=== PATIENT | male | born 1960 | race Caucasian/White ===

== ENCOUNTER 2018-04-20 00:31 | Emergency (ER) | payer OTHER ==
[~2018-04-20] VITALS: Ht 182.9 cm; Wt 127.0 kg
[2018-04-20 02:03] LABS: Basophils # (auto) 0 uL; Basophils % (auto) 0.7 % (0.0-2.0); Eosinophils # (auto) 0.1 uL; Hemoglobin 15.1 g/dL (13.5-17.5); Lymphocytes # (auto) 1.8 uL; Neutrophils # (auto) 3.3 uL
[2018-04-20 02:05] LABS: Eosinophils % (auto) 1.6 % (0.0-7.0); Hematocrit 45.9 % (41.0-53.0); Lymphocytes % (auto) 31.3 % (10.0-50.0); Mean Corpuscular Hemoglobin 33.4 pg (28.0-32.0); Mean Corpuscular Volume 101.3 fL (80.0-100.0); Monocytes # (auto) 0.6 uL; Monocytes % (auto) 9.6 % (0.0-12.0); Neutrophils % (auto) 56.8 % (37.0-80.0); Nucleated Red Blood Cells % 0.1 %; Platelet Count (auto) 187 10^3/uL (140-450); Red Blood Cells 4.54 10^6/uL (4.5-5.90); Red Cell Distribution Width 15.2 % (11.8-14.3); White Blood Cell 5.8 10^3/uL (4.4-10.8)
[2018-04-20] MEDS ORDERED: MVI in SODIUM CHLORIDE 0.9% 1,010 ML IV ONE (02:12)
[2018-04-20] MEDS ORDERED: MVI in SODIUM CHLORIDE 0.9% 1,010 ML ONE (02:14)
[2018-04-20] MEDS ORDERED: THIAMINE 100mg/ml INJ (200mg/2ml VIAL) IV ONE (02:15)
[2018-04-20] MEDS ORDERED: MAGNESIUM SULFATE 1GM/100ML 100 ML IV ONE (02:17)
[2018-04-20 02:21] LABS: Alanine Aminotransferase 35 U/L (16-61); Albumin 4.2 g/dL (3.4-5.0); Anion Gap 12 (5-15); Aspartate Aminotransferase 29 U/L (15-37); Blood Urea Nitrogen 25 mg/dL (7-18); Calcium 8.6 mg/dL (8.5-10.1); Carbon Dioxide 20 mmol/L (21-32); Chloride 107 mmol/L (98-107); Glucose 95 mg/dL (74-106); Magnesium 2.3 mg/dL (1.6-2.6); Potassium 3.8 mmol/L (3.5-5.1); Sodium 139 mmol/L (136-145)
[2018-04-20] MEDS: MAGNESIUM SULFATE 1GM/100ML 100 ML IV SCH ×2 (02:27→03:53)
[2018-04-20 02:29] LABS: Alkaline Phosphatase 67 U/L (45-117); BUN/Creatinine Ratio 18.5; Bilirubin, Total 0.2 mg/dL (0.2-1.0); GFR African American 70 mL/min; GFR Non-African American 58 mL/min
[2018-04-20 02:49] LABS: INR 0.92 (0.9-1.15); Prothrombin Time 9.9 sec (9.27-12.13)
[2018-04-20] MEDS ORDERED: LORazepam 2MG/ML-1ML VIAL ONE (10:12)
[2018-04-20] MEDS ORDERED: LORazepam 2MG/ML-1ML VIAL IV ONE ×2 (10:30→10:45)
[2018-04-20 13:47] VITALS: BP 134/65
== END 2018-04-20 17:27 | disposition home or self-care (01) ==
LOC: EDBD 00:31 → ER 00:38
DX: F10.129 Alcohol abuse with intoxication, unspecified (principal); G92 Toxic encephalopathy; E86.0 Dehydration; R41.82 Altered mental status, unspecified; R79.1 Abnormal coagulation profile; I48.91 Unspecified atrial fibrillation; I10 Essential (primary) hypertension; Y90.8 Blood alcohol level of 240 mg/100 ml or more
CPT/HCPCS: 36415; 70450; 71045; 80053; 80320; 82962; 83735; 84484; 85025; 85379; 85610; 85730; 93005; 96361; 96374; 96375; 99284; J2060; J3411; J3475

== ENCOUNTER 2018-08-07 18:56 | Emergency (ER) | payer OTHER ==
[~2018-08-07] VITALS: Ht 188 cm; Wt 113.9 kg
[2018-08-07] MEDS ORDERED: SODIUM CHLORIDE 0.9% 1,000 ML IV ONE (19:30)
[2018-08-07 19:37] LABS: Basophils # (auto) 0 uL; Basophils % (auto) 0.9 % (0.0-2.0); Eosinophils # (auto) 0.2 uL; Eosinophils % (auto) 3.1 % (0.0-7.0); Hematocrit 42.1 % (41.0-53.0); Hemoglobin 14.2 g/dL (13.5-17.5); Lymphocytes # (auto) 1.3 uL; Lymphocytes % (auto) 24.1 % (10.0-50.0); Mean Corpuscular Hemoglobin 33.8 pg (28.0-32.0); Mean Corpuscular Hgb Conc. 33.9 g/dL (32.0-36.0); Mean Corpuscular Volume 99.9 fL (80.0-100.0); Monocytes # (auto) 0.5 uL; Monocytes % (auto) 8.2 % (0.0-12.0); Neutrophils # (auto) 3.5 uL; Neutrophils % (auto) 63.7 % (37.0-80.0); Platelet Count (auto) 185 10^3/uL (140-450); Red Blood Cells 4.21 10^6/uL (4.5-5.90); Red Cell Distribution Width 14.6 % (11.8-14.3); White Blood Cell 5.6 10^3/uL (4.4-10.8)
[2018-08-07 19:42] LABS: Potassium 4.1 mmol/L (3.5-5.1)
[2018-08-07 19:44] LABS: Albumin 4.1 g/dL (3.4-5.0); Calcium 9.1 mg/dL (8.5-10.1)
[2018-08-07 19:48] LABS: INR 0.89 (0.9-1.15); Prothrombin Time 9.6 sec (9.27-12.13)
[2018-08-07 19:50] LABS: BUN/Creatinine Ratio 22.4; Bilirubin, Total 0.2 mg/dL (0.2-1.0)
[2018-08-07] MEDS ORDERED: LIDOCAINE W/ EPINEPHRINE 2% INJ 20ML VIAL IJ ONE (20:00)
[2018-08-07 21:06] LABS: Urine WBC None Seen /hpf (0 - 3)
[2018-08-07] MEDS ORDERED: MVI in SODIUM CHLORIDE 0.9% 1,010 ML ONE (21:09)
[2018-08-07 21:35] LABS: Amphetamine Screen, Urine NEGATIVE (NEGATIVE); Barbiturate Scree,Urine NEGATIVE (NEGATIVE); Benzodiazephine Screen, Urine NEGATIVE (NEGATIVE); Cannabinoid Screen, Urine NEGATIVE (NEGATIVE); Cocaine Screen, Urine NEGATIVE (NEGATIVE); Opiate Scree,Urine NEGATIVE (NEGATIVE); Phencyclidine Screen, Urine NEGATIVE (NEGATIVE)
[2018-08-07 21:36] LABS: Urine Bacteria NONE SEEN /hpf (None Seen); Urine Blood Negative /uL (Negative); Urine Specific Gravity 1.012 (1.001-1.035)
[2018-08-07] MEDS ORDERED: MULTIPLE VITAMIN 10 ML, MAGNESIUM SULF SDV 50% 8 MEQ, THIAMINE INJ 100 MG in SODIUM CHL... IV SCH (22:00)
[2018-08-07 22:06] VITALS: BP 128/71
[2018-08-07] MEDS ORDERED: NEOMYCIN-BACITRACIN-POLYM UNITDOSE PKG TOP OINT TOP ONE (22:30)
== END 2018-08-07 22:58 | disposition home or self-care (01) ==
LOC: ER 19:02
DX: S01.01XA Laceration without foreign body of scalp, initial encounter (principal); F10.229 Alcohol dependence with intoxication, unspecified; I48.91 Unspecified atrial fibrillation; I10 Essential (primary) hypertension; W18.39XA Other fall on same level, initial encounter; Y93.89 Activity, other specified; Y99.8 Other external cause status; Y92.89 Other specified places as the place of occurrence of the external cause
CPT/HCPCS: 12002; 36415; 70450; 72125; 80053; 80307; 80320; 81001; 85025; 85610; 85730; 93005; 96365; 99284; J3411; J3475; J7030

== ENCOUNTER 2018-08-16 15:25 | Emergency (ER) | payer SELFPAY ==
[~2018-08-16] VITALS: Ht 188 cm; Wt 111.6 kg
[2018-08-16 20:04] VITALS: BP 155/96
== END 2018-08-16 20:19 | disposition home or self-care (01) ==
LOC: ER 15:29
DX: S01.01XD Laceration without foreign body of scalp, subsequent encounter (principal); I10 Essential (primary) hypertension; X58.XXXD Exposure to other specified factors, subsequent encounter

== ENCOUNTER 2019-02-02 05:59 | Inpatient (IN) | payer OTHER ==
[~2019-02-02] VITALS: Ht 188 cm; Wt 104.3 kg
[2019-02-02 06:48] LABS: Basophils # (auto) 0 uL; Basophils % (auto) 0.4 % (0.0-2.0); Eosinophils # (auto) 0 uL; Eosinophils % (auto) 0.7 % (0.0-7.0); Hematocrit 40.5 % (41.0-53.0); Hemoglobin 13.9 g/dL (13.5-17.5); Lymphocytes # (auto) 0.5 uL; Lymphocytes % (auto) 8.2 % (10.0-50.0); Mean Corpuscular Hemoglobin 34.7 pg (28.0-32.0); Mean Corpuscular Hgb Conc. 34.3 g/dL (32.0-36.0); Mean Corpuscular Volume 100.9 fL (80.0-100.0); Monocytes # (auto) 0.5 uL; Monocytes % (auto) 7.9 % (0.0-12.0); Neutrophils # (auto) 5.1 uL; Neutrophils % (auto) 82.8 % (37.0-80.0); Platelet Count (auto) 150 10^3/uL (140-450); Red Blood Cells 4.02 10^6/uL (4.5-5.90); Red Cell Distribution Width 14.3 % (11.8-14.3); White Blood Cell 6.2 10^3/uL (4.4-10.8)
[2019-02-02] MEDS ORDERED: MORPHINE SULFATE 4 MG/ML SYR/VIAL IV ONE ×2 (07:00→09:30)
[2019-02-02] MEDS ORDERED: ONDANSETRON HCL 4 MG/2 ML VIAL IV ONE ×2 (07:00→09:30)
[2019-02-02 07:03] LABS: INR < 0.93 (0.9-1.15); Partial Thromboplastin Time 28.1 sec (23.64-32.05)
[2019-02-02 07:06] LABS: Alanine Aminotransferase 32 U/L (16-61); Albumin 3.8 g/dL (3.4-5.0); Anion Gap 11 (5-15); Aspartate Aminotransferase 27 U/L (15-37); BUN/Creatinine Ratio 25.7; Blood Urea Nitrogen 28 mg/dL (7-18); Calcium 8.4 mg/dL (8.5-10.1); Carbon Dioxide 23 mmol/L (21-32); Chloride 106 mmol/L (98-107); GFR African American 89 mL/min; GFR Non-African American 74 mL/min; Glucose 85 mg/dL (74-106); Potassium 4.2 mmol/L (3.5-5.1); Sodium 140 mmol/L (136-145)
[2019-02-02 07:11] LABS: Alkaline Phosphatase 50 U/L (45-117); Bilirubin, Total 0.4 mg/dL (0.2-1.0); Total Protein 7.5 g/dL (6.4-8.2)
[2019-02-02] MEDS ORDERED: LISI-646 PO (07:59)
[2019-02-02] MEDS ORDERED: CLON1TAB10 PO (07:59)
[2019-02-02] MEDS ORDERED: PRIM50TA29 PO (07:59)
[2019-02-02] MEDS ORDERED: HYDR50TA15 PO (07:59)
[2019-02-02] MEDS ORDERED: LEVO25TA6 PO (07:59)
[2019-02-02] MEDS ORDERED: TRAZ-181 PO (07:59)
[2019-02-02] MEDS ORDERED: ATEN50TA PO (07:59)
[2019-02-02] MEDS ORDERED: LAMO200T34 PO (07:59)
[2019-02-02] MEDS ORDERED: IOHEXOL 350 MG/ML 100ML IJ ONE (08:12)
[2019-02-02] MEDS ORDERED: SODIUM CHLORIDE 0.9% 1,000 ML IV ONE (08:30)
[2019-02-02] MEDS ORDERED: MORPHINE SULF INJ 2 MG/ML SYRINGE 1ML IV PRN (10:15)
[2019-02-02] MEDS ORDERED: TEMAZEPAM 15 MG CAP PO PRN (10:15)
[2019-02-02] MEDS ORDERED: ACETAMINOPHEN 500 MG TAB PO PRN (10:15)
[2019-02-02] MEDS ORDERED: LACTULOSE 20Gm/30ML SOLN PO PRN ×2 (10:15)
[2019-02-02] MEDS ORDERED: NITROGLYCERIN 0.4 MG SL TAB SL PRN (10:15)
[2019-02-02] MEDS ORDERED: PROMETHAZINE HCL 25 MG/ML 1ML IV PRN (10:15)
--- NOTE | 2019-02-02 10:38 | NUR ---
Received report from Juliann FINLEY RN. Awaiting patient to be brought up to room
--- NOTE | 2019-02-02 10:54 | NUR ---
Telemetry admit from [facility]DEL[facility] admitted to Telemetry unit after SBAR received. Patient oriented to AYDE NINO, MONTSE HESTER primary RN, unit, room, bed, and unit policies regarding patient care and visiting hours. Patient now on continuous telemetry monitoring, tele box # 69 and telemetry reading on arrival to unit is SR 66. Patient is room air, respirations unlabored, states pain 2/10 and AOx4. Plan of care reviewed with patient he verbalized understanding. Bed positioned low and locked, call light within reach will continue to monitor Q1hr or PRN as needed. Signed: 02/02/19 at 1319 by AYDE NINO SN <Co-Signature Required> Co-Signed: 02/02/19 at 1319 by MONTSE HESTER RN RN
[2019-02-02 12:30] VITALS: BP 129/66
--- NOTE | 2019-02-02 12:39 | NUR ---
Dr. Hanley at bedside New orders received for Cardiolite stress test. Patient to be NPO until stress test, than resume cardiac diet. Will implement new orders. Will continue to monitor Q1 hour and PRN.
--- NOTE | 2019-02-02 15:06 | NUR ---
Social Service consult regarding Advance Directives. Provided pt with information on Advance Directives and Durable Power of Public Address System Mechanic Form. Pt verbalized understanding and accepted information. Will contact Director Of Instrumental Music for any further concerns or issues.
[2019-02-02] MEDS ORDERED: ASPirin 325 MG TAB PO SCH (15:30)
[2019-02-02] MEDS ORDERED: PANTOPRAZOLE 40 MG TAB PO ONE (15:45)
--- NOTE | 2019-02-02 16:40 | NUR ---
technical assistance consultant at bedside
[2019-02-02] MEDS: traMADol HCL 50 MG TAB PO PRN ×2 (16:58→21:06)
[2019-02-02 17:00] VITALS: BP 113/70
--- NOTE | 2019-02-02 18:08 | NUR ---
Called pharmacy for patients 1800 medications. States they will send up medication.
--- NOTE | 2019-02-02 19:28 | NUR ---
Closing Note Report given to shift supervisor film processing RN. No signs or symptoms of distress noted at this time.
[2019-02-02 22:00] VITALS: BP 150/79
[2019-02-02] MEDS ORDERED: ATORVASTATIN 20 MG TAB PO SCH (22:00)
[2019-02-02] MEDS ORDERED: traZODone HCL 50 MG TAB PO SCH (22:00)
[2019-02-02] MEDS: ASPirin 325 MG TAB PO SCH (22:09)
[2019-02-02] MEDS: hydrALAZINE HCL 25 MG TAB PO SCH (22:10)
[2019-02-02] MEDS: COLCHICINE 0.6 MG CAP PO SCH (22:11)
[2019-02-02] MEDS: clonazePAM 0.5 MG TAB PO SCH (22:12)
[2019-02-02] MEDS: lamoTRIgine 100 MG TAB PO SCH (22:12)
[2019-02-02] MEDS: PRIMIDONE 50 MG TAB PO SCH (22:13)
[2019-02-02] MEDS: METOPROLOL TARTRATE 25 MG TAB PO SCH (22:13)
[2019-02-03 05:00] VITALS: BP 127/60
[2019-02-03] MEDS: ASPirin 325 MG TAB PO SCH ×2 (06:38→14:58)
[2019-02-03] MEDS: traMADol HCL 50 MG TAB PO PRN (06:45)
[2019-02-03] MEDS ORDERED: LEVOTHYROXINE SODIUM 25 MCG TAB PO SCH (07:00)
--- NOTE | 2019-02-03 07:30 | NUR ---
Opening Note Received report from production supervisor off shift RN. Patient is awake, alert and oriented x4. No signs or symptoms of distress noted at this time. Patient is NPO for stress test today. Patient denies pain at this time. Patient is on room air, respirations even and unlabored. Reviewed plan of care with patient, patient verbalized understanding. Bed in low and locked position, call light within reach. Will continue to monitor Q1h hour and PRN.
[2019-02-03] MEDS ORDERED: ADENOSINE 88 MG in GIVE UN-DILUTED 0 ML IV STA (08:27)
[2019-02-03 09:00] VITALS: BP 143/75
[2019-02-03] MEDS ORDERED: PANTOPRAZOLE 40 MG TAB PO SCH (10:00)
[2019-02-03] MEDS ORDERED: LISINOPRIL 20 MG TAB PO SCH (10:00)
[2019-02-03] MEDS: METOPROLOL TARTRATE 25 MG TAB PO SCH (10:00)
[2019-02-03] MEDS ORDERED: ASPirin 81 mg TAB PO SCH (10:00)
[2019-02-03] MEDS ORDERED: ENOXAPARIN SOD 40 MG/0.4 ML SYRINGE SC SCH (10:00)
[2019-02-03] MEDS ORDERED: NITROGLYCERIN 0.2MG/HR TOPICAL PATCH TD SCH (10:00)
--- NOTE | 2019-02-03 11:40 | NUR ---
Patient back form stress test
--- NOTE | 2019-02-03 11:48 | NUR ---
Dr. Mcallister at bedside Updating patient on plan of care
[2019-02-03] MEDS: COLCHICINE 0.6 MG CAP PO SCH (11:56)
[2019-02-03] MEDS: lamoTRIgine 100 MG TAB PO SCH (11:56)
[2019-02-03] MEDS: PRIMIDONE 50 MG TAB PO SCH (11:56)
[2019-02-03] MEDS: hydrALAZINE HCL 25 MG TAB PO SCH (11:58)
[2019-02-03] MEDS: clonazePAM 0.5 MG TAB PO SCH (12:04)
[2019-02-03 13:00] VITALS: BP 132/89
[2019-02-03 14:17] VITALS: BP 132/89
[2019-02-03] MEDS ORDERED: PANT40TA2 PO (14:36)
[2019-02-03] MEDS ORDERED: COLC0.6T56 PO (14:36)
[2019-02-03] MEDS ORDERED: MISO100T PO (14:36)
--- NOTE | 2019-02-03 15:54 | NUR ---
patient prescriptions faxed to [facility] Per patient request.
--- NOTE | 2019-02-03 16:20 | NUR ---
Spoke to with Dr. Hanley Patient is cleared for discharge from cardiology. Will implement new orders.
--- NOTE | 2019-02-03 16:55 | NUR ---
Discharge Discharge instructions given as ordered. Encourage to follow up with primary care physician at [facility] as instructed. All questions and concerns addressed. Patient verbalized understanding. Medication reconciliation form completed and copy given to patient. IV catheter removed, catheter intact, pressure dressing applied. Telemetry box removed and sent back to ICU. Patient refused wheelchair, patient ambulated to personal vehicle, with all personal belongings accompanied by family member. No signs or symptoms of distress noted at this time.
== END 2019-02-03 16:55 | disposition home or self-care (01) | DRG 316 ==
LOC: ER 05:59 → EDBD 05:59 → TELE 06:00 → TELE-WESTW 11:06
PROVIDERS: ADMIT Internal Medicine; ATTEND Internal Medicine
DX: I30.9 Acute pericarditis, unspecified (principal); E03.9 Hypothyroidism, unspecified; E66.9 Obesity, unspecified; F17.210 Nicotine dependence, cigarettes, uncomplicated; E78.5 Hyperlipidemia, unspecified; F31.9 Bipolar disorder, unspecified; H91.90 Unspecified hearing loss, unspecified ear; I11.0 Hypertensive heart disease with heart failure; I48.91 Unspecified atrial fibrillation; K76.0 Fatty (change of) liver, not elsewhere classified; Z68.29 Body mass index [BMI] 29.0-29.9, adult; Z79.82 Long term (current) use of aspirin; Z82.49 Family history of ischemic heart disease and other diseases of the circulatory system; F41.9 Anxiety disorder, unspecified
CPT/HCPCS: 36415; 71045; 71275; 78452; 80053; 82550; 83880; 84484; 85025; 85610; 85652; 85730; 86141; 93005; 93017; 93306; 96361; 96374; 96375; 96376; 99291; G0378; J0153; J2405

== ENCOUNTER 2019-11-26 14:54 | Inpatient (IN) | payer OTHER ==
[~2019-11-26] VITALS: Ht 188 cm; Wt 74.4 kg
[~2019-11-26 14:54] MED LIST: ATEN50TA PO; CLON1TAB10 PO; COLC0.6T56 PO; HYDR50TA15 PO; LAMO200T34 PO; LEVO25TA6 PO; LISI-646 PO; MISO100T PO; PANT40TA2 PO; PRIM50TA29 PO; TRAZ-181 PO
[2019-11-26] MEDS ORDERED: NITROGLYCERIN 0.4 MG SL TAB SL ONE (15:15)
[2019-11-26 15:57] LABS: Basophils # (auto) 0 10 ^3/uL (0-0.2); Basophils % (auto) 0.7 % (0.0-2.0); Eosinophils # (auto) 0.1 10 ^3/uL (0-0.8); Eosinophils % (auto) 2.1 % (0.0-7.0); Hematocrit 46.5 % (41.0-53.0); Hemoglobin 15.6 g/dL (13.5-17.5); Lymphocytes # (auto) 1.5 10 ^3/uL (0.4-5.4); Lymphocytes % (auto) 21.2 % (10.0-50.0); Mean Corpuscular Hemoglobin 33.2 pg (28.0-32.0); Mean Corpuscular Hgb Conc. 33.5 g/dL (32.0-36.0); Mean Corpuscular Volume 99.1 fL (80.0-100.0); Monocytes # (auto) 0.8 10 ^3/uL (0-1.3); Monocytes % (auto) 10.9 % (0.0-12.0); Neutrophils # (auto) 4.6 10 ^3/uL (1.6-8.6); Neutrophils % (auto) 65.1 % (37.0-80.0); Platelet Count (auto) 204 10^3/uL (140-450); Red Blood Cells 4.69 10^6/uL (4.5-5.90); Red Cell Distribution Width 13.3 % (11.8-14.3); White Blood Cell 7.1 10^3/uL (4.4-10.8)
[2019-11-26 16:13] LABS: INR 0.95 (0.9-1.15); Partial Thromboplastin Time 30.7 sec (23.0-31.2)
[2019-11-26 16:17] LABS: Alanine Aminotransferase 55 U/L (16-61); Albumin 3.9 g/dL (3.4-5.0); Anion Gap 12 (5-15); Aspartate Aminotransferase 40 U/L (15-37); BUN/Creatinine Ratio 20.2; Blood Urea Nitrogen 20 mg/dL (7-18); Calcium 9.3 mg/dL (8.5-10.1); Carbon Dioxide 24 mmol/L (21-32); Chloride 101 mmol/L (98-107); GFR African American 100 mL/min; GFR Non-African American 82 mL/min; Glucose 82 mg/dL (74-106); Potassium 3.6 mmol/L (3.5-5.1); Sodium 137 mmol/L (136-145)
[2019-11-26 16:21] LABS: Alkaline Phosphatase 71 U/L (45-117); Bilirubin, Total 0.4 mg/dL (0.2-1.0); Total Protein 8.4 g/dL (6.4-8.2)
[2019-11-26] MEDS ORDERED: NITROGLYCERIN 0.4 MG SL TAB SL PRN ×2 (21:30)
[2019-11-26] MEDS ORDERED: ONDANSETRON HCL 4 MG/2 ML VIAL IV PRN (21:30)
[2019-11-26] MEDS ORDERED: METOPROLOL TARTRATE 1MG/1ML-5ML VIAL IV PRN (21:30)
[2019-11-26] MEDS ORDERED: ACETAMINOPHEN 325 MG TAB PO PRN (21:30)
[2019-11-26] MEDS: LORazepam 0.5 MG TAB PO PRN (22:26)
[2019-11-26] MEDS: COLCHICINE 0.6 MG CAP PO SCH (22:26)
[2019-11-26] MEDS: MORPHINE SULF INJ 2 MG/ML SYRINGE 1ML IV PRN (22:26)
[2019-11-26] MEDS: traZODone HCL 50 MG TAB PO SCH (22:27)
[2019-11-26] MEDS: PRIMIDONE 50 MG TAB PO SCH (22:28)
[2019-11-26 23:30] VITALS: BP 142/81
--- NOTE | 2019-11-26 23:30 | NUR ---
Telemetry admit from ER LATASHA CANDELARIO admitted to Telemetry unit after SBAR received. Patient oriented to Rashard Willard primary RN, unit, room, bed, and unit policies regarding patient care and visiting hours. Patient now on continuous telemetry monitoring, tele box # 35 and telemetry reading on arrival to unit is nsr. Patient placed on bedside oxygen, weighed by bedscale and encouraged to call if they need something. All questions and concerns addressed, patient verbalized understanding.
[2019-11-27] MEDS: ZOLPIDEM TARTRATE 5 MG TAB PO PRN ×2 (00:17→23:06)
[2019-11-27] MEDS: MORPHINE SULF INJ 2 MG/ML SYRINGE 1ML IV PRN ×2 (03:25→21:04)
[2019-11-27 05:00] VITALS: BP 155/82
[2019-11-27] MEDS ORDERED: LEVOTHYROXINE SODIUM 25 MCG TAB PO SCH (07:00)
[2019-11-27 07:30] LABS: Basophils # (auto) 0 10 ^3/uL (0-0.2); Basophils % (auto) 0.4 % (0.0-2.0); Eosinophils # (auto) 0.1 10 ^3/uL (0-0.8); Eosinophils % (auto) 1.8 % (0.0-7.0); Hematocrit 41.1 % (41.0-53.0); Hemoglobin 13.7 g/dL (13.5-17.5); Lymphocytes # (auto) 0.8 10 ^3/uL (0.4-5.4); Lymphocytes % (auto) 16.4 % (10.0-50.0); Mean Corpuscular Hemoglobin 33.2 pg (28.0-32.0); Mean Corpuscular Hgb Conc. 33.4 g/dL (32.0-36.0); Mean Corpuscular Volume 99.5 fL (80.0-100.0); Monocytes # (auto) 0.7 10 ^3/uL (0-1.3); Monocytes % (auto) 14.3 % (0.0-12.0); Neutrophils # (auto) 3.2 10 ^3/uL (1.6-8.6); Neutrophils % (auto) 67.1 % (37.0-80.0); Nucleated Red Blood Cells % 0.1 %; Platelet Count (auto) 149 10^3/uL (140-450); Red Blood Cells 4.13 10^6/uL (4.5-5.90); Red Cell Distribution Width 13.3 % (11.8-14.3); White Blood Cell 4.7 10^3/uL (4.4-10.8)
[2019-11-27 07:56] LABS: BUN/Creatinine Ratio 20.5; Calcium 8.7 mg/dL (8.5-10.1); Magnesium 1.8 mg/dL (1.6-2.6)
[2019-11-27] MEDS: miSOPROStol 100 mcg TAB PO SCH ×4 (08:00→18:25)
--- NOTE | 2019-11-27 08:16 | NUR ---
Opening Shift Note Assumed care of patient, awake and alert. No S/S of distress/SOB or pain. Patient currently on 2l nasal canula. Instructed on POC and to call for assist PRN, will continue to monitor for changes Q1hr and PRN. Bed locked in lowest position, side rails up x 2, HOB elevated at least 30 degrees and call light is within reach.
[2019-11-27 09:00] VITALS: BP 162/88
[2019-11-27] MEDS: DOCUSATE SOD 100 MG CAP PO SCH (09:19)
[2019-11-27] MEDS: clonazePAM 0.5 MG TAB PO SCH ×2 (09:20→21:40)
[2019-11-27] MEDS: hydrALAZINE HCL 25 MG TAB PO SCH ×2 (09:20→21:41)
[2019-11-27] MEDS: lamoTRIgine 100 MG TAB PO SCH ×2 (09:21→21:40)
[2019-11-27] MEDS: COLCHICINE 0.6 MG CAP PO SCH ×2 (09:21→21:42)
[2019-11-27] MEDS ORDERED: ATENOLOL 50 MG TAB PO SCH (10:00)
[2019-11-27] MEDS: LISINOPRIL 20 MG TAB PO SCH (10:00)
[2019-11-27] MEDS ORDERED: ASPirin 81 mg TAB PO SCH (10:00)
[2019-11-27] MEDS ORDERED: CLOPIDOGREL BISULFATE 75 MG TAB PO SCH (10:00)
[2019-11-27] MEDS: PANTOPRAZOLE 40 MG TAB PO SCH (10:23)
[2019-11-27] MEDS: PRIMIDONE 50 MG TAB PO SCH ×2 (10:23→21:41)
[2019-11-27] MEDS: LORazepam 0.5 MG TAB PO PRN (12:31)
[2019-11-27 13:00] VITALS: BP 156/89
--- NOTE | 2019-11-27 14:02 | NUR ---
Md Rounds MD Rounds with Dr. Bryant. Orders received and verified. Will continue care.
[2019-11-27 17:00] VITALS: BP 166/101
--- NOTE | 2019-11-27 17:03 | NUR ---
Called/paged Dr. Reid called. Orders received and verified. Will continue care.
[2019-11-27] MEDS: hydrALAZINE HCL 20 MG/ML VL IV PRN (17:46)
[2019-11-27] MEDS ORDERED: miSOPROStol 50 MCG per PRE-CUT 1/2 TAB PO SCH (18:00)
--- NOTE | 2019-11-27 19:27 | NUR ---
Closing Shift Note Endorsed care to day shift RN
--- NOTE | 2019-11-27 19:28 | NUR ---
MD ROUNDS Md Rounds with Dr. Bryant. Orders received and verified. Will continue care. Addendum: 11/27/19 at 1930 by ZHAO SHARMA RN RN Yaneth not 1928
--- NOTE | 2019-11-27 21:00 | NUR ---
CHEST PAIN Patient complains of chest pain radiating to the left side. Patient refuses nitroglycerin he states " It doesn't do anything for me." Per protocol patient given Morphine 2mg. Patient on 2L NC. EKG shown to hospitalist, no new orders received. Will continue to monitor patient Q1 and PRN.
[2019-11-27] MEDS: METOPROLOL TARTRATE 25 MG TAB PO SCH (21:41)
[2019-11-27] MEDS: traZODone HCL 50 MG TAB PO SCH (21:42)
[2019-11-27 22:00] VITALS: BP 165/93
[2019-11-27] MEDS ORDERED: ATORVASTATIN 20 MG TAB PO SCH (22:00)
[2019-11-28] MEDS: miSOPROStol 100 mcg TAB PO SCH ×3 (00:19→12:01)
[2019-11-28] MEDS: LORazepam 0.5 MG TAB PO PRN (00:27)
[2019-11-28] MEDS: hydrALAZINE HCL 20 MG/ML VL IV PRN (00:28)
[2019-11-28 05:00] VITALS: BP 141/82
--- NOTE | 2019-11-28 07:10 | NUR ---
End of Shift Note Endorsed care to dayshift RN. At this time patient has no s/ of distress or SOB.
[2019-11-28 09:00] VITALS: BP 151/99
[2019-11-28] MEDS: COLCHICINE 0.6 MG CAP PO SCH (09:55)
[2019-11-28] MEDS: lamoTRIgine 100 MG TAB PO SCH (09:55)
[2019-11-28] MEDS: hydrALAZINE HCL 25 MG TAB PO SCH (09:55)
[2019-11-28] MEDS: PANTOPRAZOLE 40 MG TAB PO SCH (09:56)
[2019-11-28] MEDS: PRIMIDONE 50 MG TAB PO SCH (09:56)
[2019-11-28] MEDS: DOCUSATE SOD 100 MG CAP PO SCH (09:56)
[2019-11-28] MEDS: METOPROLOL TARTRATE 25 MG TAB PO SCH (09:56)
[2019-11-28] MEDS: LISINOPRIL 20 MG TAB PO SCH (09:57)
[2019-11-28] MEDS: clonazePAM 0.5 MG TAB PO SCH (09:57)
[2019-11-28] MEDS ORDERED: ASPirin 325 MG TAB PO SCH (10:00)
[2019-11-28] MEDS ORDERED: PANTOPRAZOLE 40 MG TAB PO SCH (10:00)
[2019-11-28 13:00] VITALS: BP 113/61
[2019-11-28 13:20] VITALS: BP 113/61
--- NOTE | 2019-11-28 15:24 | NUR ---
Discharge instructions given as ordered. Encourage to follow up with PMD in [facility] as instructed. All questions and concerns addressed. Patient verbalized understanding. Medication reconciliation form completed and copy given to patient. IV removed with catheter intact, pressure dressing applied. Telemetry unit returned to ICU. Patient taken to vehicle via wheelchair with all personal belongings, accompanied by staff and family member. No distress noted at time of departure.
== END 2019-11-28 15:20 | disposition home or self-care (01) | DRG 313 ==
LOC: ER 14:54 → TELE 14:55 → TELE-CENTR 23:14
PROVIDERS: ADMIT Hospitalist; ATTEND Family Medicine
DX: R07.89 Other chest pain (principal); I50.31 Acute diastolic (congestive) heart failure; Z68.43 Body mass index [BMI] 50.0-59.9, adult; E66.01 Morbid (severe) obesity due to excess calories; E03.9 Hypothyroidism, unspecified; E78.00 Pure hypercholesterolemia, unspecified; E78.5 Hyperlipidemia, unspecified; F31.9 Bipolar disorder, unspecified; F43.10 Post-traumatic stress disorder, unspecified; I11.0 Hypertensive heart disease with heart failure; I44.0 Atrioventricular block, first degree; F41.9 Anxiety disorder, unspecified; F17.210 Nicotine dependence, cigarettes, uncomplicated; I48.91 Unspecified atrial fibrillation; K76.0 Fatty (change of) liver, not elsewhere classified; Z82.49 Family history of ischemic heart disease and other diseases of the circulatory system; Z79.899 Other long term (current) drug therapy
CPT/HCPCS: 36415; 71045; 80048; 80053; 80061; 83735; 83880; 84443; 84484; 85025; 85610; 85730; 86141; 93306; G0378